=== PATIENT | female | born 2000 | race Hispanic/Latino ===

== ENCOUNTER → 2024-09-11 16:08 | Outpatient (CLI) | payer OTHER, SELFPAY ==
[2024-09-11 16:34] LABS: Add Manual Diff / Slide Review NO; Hematocrit 33.8 % (36-46); Hemoglobin 11.3 g/dL (12.0-16.0); Lymphocytes Absolute Auto 4700 /uL (1100-4500); Mean Corpuscular HGB Conc 33.4 % (30-36); Mean Corpuscular Hemoglobin 26.0 PG (26-34); Mean Corpuscular Volume 77.8 fL (80-100); Platelet Count 334 X10^3/uL (150-400)
[2024-09-11 17:10] LABS: Alanine Aminotransferase 25 IU/L (<35); Albumin 4.4 g/dL (3.5-5.0); Albumin Globulin Ratio 1.2 (1.0-2.8); Alkaline Phosphatase 97 U/L (38-126); Blood Urea Nitrogen 16 mg/dL (7-17); Calcium 9.8 mg/dL (8.4-10.2); Carbon Dioxide 28 mmol/L (22-32); Chloride 101 mmol/L (98-107); Cholesterol 212 mg/dL (140-199); Estimated Glomerular Filt Rate > 60 mL/min (>60); Globulin 3.8 g/dL (1.7-4.1); Glucose 119 mg/dL (70-99); HDL Cholesterol 42 mg/dL (40-60); Potassium 4.2 mmol/L (3.4-5.1); Sodium 136 mmol/L (137-145); Total Protein 8.2 g/dL (6.3-8.2); Triglycerides 148 mg/dL (35-150)
[2024-09-11 17:11] LABS: HEMOLYSIS < 15 (0-50); Iron 46 ug/dL (37-170)
[2024-09-11 17:19] LABS: Hemoglobin A1C% w Est Avg Glu 6.4 % (4.0-6.0)
[2024-09-11 17:21] LABS: HEMOLYSIS < 15 (0-50)
[2024-09-11 17:23] LABS: Percent Iron Saturation 13 % (15-50); Total Iron Binding Capacity 361 ug/dL (265-497)
[2024-09-11 17:43] LABS: TSH w/ Reflex to FT4 2.28 uIU/mL (0.47-4.68)
[2024-09-11 17:47] LABS: Ferritin 60 ng/mL (6-137)
[2024-09-12 00:40] LABS: Transferrin 302 mg/dL (206-381)
== END ==
PROVIDERS: PCP Student in an Organized Health Care Education/Training Program; Referring Provider Student in an Organized Health Care Education/Training Program; Visit Provider Student in an Organized Health Care Education/Training Program
DX: R63.5 Abnormal weight gain (principal); Z83.3 Family history of diabetes mellitus; Z86.2 Personal history of diseases of the blood and blood-forming organs and certain disorders involving the immune mechanism
CPT/HCPCS: 36415; 80053; 80061; 82728; 83036; 83540; 83550; 84443; 85025